=== PATIENT | female | born 1955 | race African-American/Black ===

== ENCOUNTER → 2021-07-14 | Outpatient (CLI) | payer BC | END | disposition home or self-care (01) | LOC: RAD 14:32 | PROVIDERS: ATTEND Internal Medicine | DX: M19.011 Primary osteoarthritis, right shoulder (principal); M19.012 Primary osteoarthritis, left shoulder; M47.812 Spondylosis without myelopathy or radiculopathy, cervical region; M54.2 Cervicalgia | CPT/HCPCS: 72040; 73030; 73650 ==

== ENCOUNTER → 2022-02-02 | Outpatient (CLI) | payer BC | END | disposition home or self-care (01) | LOC: RAD 14:51 | PROVIDERS: ATTEND Internal Medicine | DX: M79.644 Pain in right finger(s) (principal); M79.641 Pain in right hand | CPT/HCPCS: 73130; 73140 ==

== ENCOUNTER → 2022-03-02 | Outpatient (CLI) | payer BC | END | disposition home or self-care (01) | LOC: CARD 11:10 | PROVIDERS: ATTEND Internal Medicine | DX: Z01.818 Encounter for other preprocedural examination (principal); R00.1 Bradycardia, unspecified | CPT/HCPCS: 93005 ==